=== PATIENT | male | born 1970 | race Asian ===

== ENCOUNTER 2018-11-09 07:20 | Day surgery (SDC) | payer OTHER ==
[2018-11-09] MEDS ORDERED: MIDAZOLAM 1 MG/ML 2 ML INJ ×2 (10:48)
[2018-11-09] MEDS ORDERED: FENTAnyl 50 MCG/ML VIAL (10:48)
== END 2018-11-09 16:38 | disposition home or self-care (01) ==
LOC: GIL 07:20
DX: R19.4 Change in bowel habit (principal); K64.8 Other hemorrhoids; K64.4 Residual hemorrhoidal skin tags
CPT/HCPCS: 45378